=== PATIENT | male | born 1960 | race African-American/Black ===

== ENCOUNTER 2021-05-22 09:38 | Inpatient (IN) | payer OTHER ==
[~2021-05-22] VITALS: Ht 175.3 cm; Wt 143.0 kg
[~2021-05-22 09:38] MED LIST: ONDANSETRON ODT4 MG SL; TRAMADOL HCL50 MG PO
[2021-05-22 10:37] LABS: BASOPHIL 0.2 % (0-2); EOSINOPHIL 0 % (0-5); HCT 45.8 % (42.0-52.0); HGB 14.6 g/dl (13.2-18.0); LYMPHOCYTE 12.3 % (15-48); MCHC 31.9 g/dL (32.0-36.0); MCV 84.8 fL (78.0-100.0); MONOCYTE 5.7 % (0-12); MPV 11.1 fL (6.0-9.5); NRBC 0; PLT 265 K/uL (150-400); RDW 17.1 % (11.5-14.0); WBC 17.1 K/uL (4.0-10.5)
[2021-05-22 11:17] LABS: INFLUENZA A NAA NEGATIVE (NEGATIVE)
[2021-05-22 11:29] LABS: CORONAVIRUS 2019 SARS-COV-2 POSITIVE (NEGATIVE)
[2021-05-22 11:44] LABS: ALBUMIN 3.1 g/dL (3.4-5.0); ALKALINE PHOSHATASE 82 U/L (46-116); ALT 91 U/L (16-63); AST 109 U/L (15-37); BILIRUBIN - TOTAL 0.6 mg/dL (0.2-1.0); BUN 22 mg/dL (7-18); CHLORIDE 98 mmol/L (98-107); CO2 (BICARBONATE) 20 mmol/L (21-32); CREATININE 1.22 mg/dL (0.67-1.17); FT4 (FREE T4) 0.8 ng/dL (0.76-1.46); GLOBULIN (CALCULATION) 5.4 g/dL; GLUCOSE 288 mg/dL (74-106); LDH 822 U/L (85-227); POTASSIUM 3.6 mmol/L (3.5-5.1); TOTAL PROTEIN 8.5 g/dL (6.4-8.2)
[2021-05-22 11:46] LABS: C-REACTIVE PROTEIN > 18.00 mg/dL (<=0.90)
[2021-05-22 11:56] LABS: PRO-BNP 135 pg/mL (<125)
[2021-05-22 11:58] LABS: LACTIC ACID 10.5 mmol/L (0.4-1.9)
[2021-05-22] MEDS ORDERED: NORVASC5 MG PO (20:50)
[2021-05-22] MEDS ORDERED: VITAMIN D21250 MCG PO (20:52)
[2021-05-22] MEDS ORDERED: COMBIGAN EYE DRO5 ML XX (20:53)
[2021-05-22] MEDS ORDERED: SYNTHROID25 MCG PO (20:54)
[2021-05-22] MEDS ORDERED: HYZAAR 100-251 EACH PO (20:55)
[2021-05-23 06:12] LABS: BILIRUBIN NEGATIVE (NEGATIVE); BLOOD 3+ Ery/uL (NEGATIVE); CLARITY CLEAR (CLEAR); COLOR YELLOW (YELLOW); GLUCOSE (U) NORMAL (NORMAL); LEUKOCYTES NEGATIVE Leu/uL (NEGATIVE); NITRITE NEGATIVE (NEGATIVE); PROTEIN TRACE (LOW) mg/dL (NEGATIVE); SPECIFIC GRAVITY >=1.030 (1.001-1.030); UROBILINOGEN 0.2 mg/dL (0.2-1.0); pH 5.5 (5.0-9.0)
[2021-05-23 06:24] LABS: URINARY RBC 20-50
[2021-05-23 06:25] LABS: AMORPHOUS URATES CRYSTALS LARGE; BACTERIA 1+; MUCOUS LARGE; RENAL EPITHELIAL CELLS RARE; SQUAMOUS EPITHELIAL CELLS 20-50
[2021-05-23 06:51] LABS: BASOPHIL 0.1 % (0-2); EOSINOPHIL 0 % (0-5); HCT 34.5 % (42.0-52.0); LYMPHOCYTE 15.3 % (15-48); MCH 26.7 pg (25.0-31.0); MCHC 31.9 g/dL (32.0-36.0); MCV 83.7 fL (78.0-100.0); MONOCYTE 4.4 % (0-12); MPV 11.4 fL (6.0-9.5); NEUTROPHIL 79.3 % (41-80); NRBC 0; PLT 173 K/uL (150-400); RBC 4.12 M/uL (4.70-6.00); WBC 6.9 K/uL (4.0-10.5)
[2021-05-23 07:14] LABS: BUN 41 mg/dL (7-18); BUN/CREAT RATIO (CALC) 23.6 RATIO; C-REACTIVE PROTEIN >18.00 mg/dL (<=0.90); CHLORIDE 104 mmol/L (98-107); CO2 (BICARBONATE) 25 mmol/L (21-32); CREATININE 1.74 mg/dL (0.67-1.17); GLUCOSE 266 mg/dL (74-106); POTASSIUM 3.8 mmol/L (3.5-5.1)
[2021-05-24 06:02] LABS: BASOPHIL 0 % (0-2); EOSINOPHIL 0 % (0-5); HCT 36.4 % (42.0-52.0); HGB 11.6 g/dl (13.2-18.0); MCH 26.9 pg (25.0-31.0); MCHC 31.9 g/dL (32.0-36.0); MCV 84.5 fL (78.0-100.0); MONOCYTE 3.6 % (0-12); MPV 11.3 fL (6.0-9.5); NEUTROPHIL 88.5 % (41-80); NRBC 0.2; PLT 202 K/uL (150-400); RBC 4.31 M/uL (4.70-6.00); RDW 16.8 % (11.5-14.0)
[2021-05-24 06:03] LABS: WBC 12.4 K/uL (4.0-10.5)
[2021-05-24 06:40] LABS: IRON % SATURATION 23.8 %SAT (20-50)
[2021-05-24 07:19] LABS: ALBUMIN 2.2 g/dL (3.4-5.0); BILIRUBIN - TOTAL 0.2 mg/dL (0.2-1.0); BUN/CREAT RATIO (CALC) 36.6 RATIO; CREATININE 0.93 mg/dL (0.67-1.17); GLOBULIN (CALCULATION) 4.1 g/dL; MAGNESIUM 2.5 mg/dL (1.8-2.4); PHOSPHORUS 2.9 mg/dL (2.6-4.7); POTASSIUM 3.9 mmol/L (3.5-5.1)
[2021-05-24 07:41] LABS: TOTAL PROTEIN 6.3 g/dL (6.4-8.2)
[2021-05-24 07:51] LABS: RETICULOCYTE COUNT 1.1 % (1.0-2.0)
[2021-05-25 05:17] LABS: BASOPHIL 0.1 % (0-2); EOSINOPHIL 0 % (0-5); HCT 37.8 % (42.0-52.0); HGB 11.6 g/dl (13.2-18.0); LYMPHOCYTE 10.3 % (15-48); MCH 26.4 pg (25.0-31.0); MCHC 30.7 g/dL (32.0-36.0); MCV 85.9 fL (78.0-100.0); MPV 11.6 fL (6.0-9.5); NEUTROPHIL 84.2 % (41-80); NRBC 0.4; PLT 206 K/uL (150-400); RDW 17.1 % (11.5-14.0); WBC 9.5 K/uL (4.0-10.5)
[2021-05-25 06:02] LABS: BILIRUBIN - TOTAL 0.3 mg/dL (0.2-1.0); BUN/CREAT RATIO (CALC) 35.4 RATIO; CREATININE 0.79 mg/dL (0.67-1.17); MAGNESIUM 2.5 mg/dL (1.8-2.4); PHOSPHORUS 2.9 mg/dL (2.6-4.7); POTASSIUM 4.4 mmol/L (3.5-5.1)
== END 2021-05-26 00:58 | disposition other institution (70) | DRG 871 ==
LOC: FER 09:38 → FICU 14:42
PROVIDERS: Emergency Medicine; Internal Medicine; ADMIT Allergy & Immunology Allergy
PROC: 0BH17EZ Insertion of Endotracheal Airway into Trachea, Via Natural or Artificial Opening (ICD-10-PCS; principal; 2021-05-22)
PROC: 5A1945Z Respiratory Ventilation, 24-96 Consecutive Hours (ICD-10-PCS; 2021-05-22)
PROC: XW033H5 Introduction of Tocilizumab into Peripheral Vein, Percutaneous Approach, New Technology Group 5 (ICD-10-PCS; 2021-05-22)
PROC: XW033E5 Introduction of Remdesivir Anti-infective into Peripheral Vein, Percutaneous Approach, New Technology Group 5 (ICD-10-PCS; 2021-05-22)
PROC: 02HV33Z Insertion of Infusion Device into Superior Vena Cava, Percutaneous Approach (ICD-10-PCS; 2021-05-22)
PROC: B548ZZA Ultrasonography of Superior Vena Cava, Guidance (ICD-10-PCS; 2021-05-22)
PROC: 03HY32Z Insertion of Monitoring Device into Upper Artery, Percutaneous Approach (ICD-10-PCS; 2021-05-22)
PROC: XW0DXM6 Introduction of Baricitinib into Mouth and Pharynx, External Approach, New Technology Group 6 (ICD-10-PCS; 2021-05-24)
DX: A41.89 Other specified sepsis (principal); U07.1 COVID-19; J12.82 Pneumonia due to coronavirus disease 2019; J96.01 Acute respiratory failure with hypoxia; J15.9 Unspecified bacterial pneumonia; I26.99 Other pulmonary embolism without acute cor pulmonale; N17.9 Acute kidney failure, unspecified; R04.2 Hemoptysis; J98.11 Atelectasis; R65.20 Severe sepsis without septic shock; E66.01 Morbid (severe) obesity due to excess calories; J43.9 Emphysema, unspecified; I10 Essential (primary) hypertension; G47.33 Obstructive sleep apnea (adult) (pediatric); E11.9 Type 2 diabetes mellitus without complications; K76.5 Hepatic veno-occlusive disease; Z68.33 Body mass index [BMI] 33.0-33.9, adult; Z79.890 Hormone replacement therapy; Z79.84 Long term (current) use of oral hypoglycemic drugs; Z79.899 Other long term (current) drug therapy; Z87.891 Personal history of nicotine dependence; Z78.1 Physical restraint status
CPT/HCPCS: 31500; 36415; 36600; 71045; 71275; 74018; 80048; 80053; 80202; 81001; 82009; 82607; 82728; 82746; 82803; 82962; 83540; 83550; 83605; 83615; 83735; 83880; 84100; 84145; 84439; 84443; 84484; 85025; 85379; 86140; 87040; 93005; 94002; 94640; 96365; 96375; C9113; C9399; J0330; J1100; J1644; J1650; J1940; J2250; J2543; J2704; J3010; J3262; J3370; J7030; J7040; J7050; J7120; Q9967; U0002